=== PATIENT | male | born 1995 | race Caucasian/White ===

== ENCOUNTER 2017-07-20 02:57 | Inpatient (IN) | payer OTHER ==
[~2017-07-20] VITALS: Ht 177.8 cm; Wt 102.1 kg
[2017-07-20] VITALS (46 sets, daily range): BP systolic 72–182; BP diastolic 31–162
--- NOTE | ~2017-07-20 | HC ---
[facility] [place] [address] CONSULTATION Name: PAUL CARDONA KATHY Room #: 237-P ADM IN M.R.#: [id number] Admission: 07/20/17 Attend Phys: Anival Gordillo DO Discharge: Date of : 89 Report #: [id number] THIS REPORT FOR: //name// CC: FAM physician/PCP Anival Gordillo DATE OF SERVICE: 07/20/2017 ATTENDING PHYSICIAN: Dr. Gordillo. REASON FOR CONSULTATION: Sepsis. HISTORY OF PRESENT ILLNESS: The patient is a 22-year-old man, admitted through the Emergency Room with a history of being unwell for a few days, complaining mainly of not feeling well with chest discomfort, shortness of breath and chilling type sensation. The patient apparently uses intravenous drugs, injecting himself into the arms. The patient also relates he has a history of HIV infection and is receiving treatment with Genvoya (elvitegravir/cobicistat/emtricitabine/tenofovir alafenamide). The patient denies knowing his CD4 lymphocyte count or viral load. Apparently, he gave a previous history in the Emergency Room of having undetectable viral load. DRUG ALLERGIES: None listed. MEDICATIONS: Genvoya. SOCIAL HISTORY: Intravenous drug use. REVIEW OF SYSTEMS: Besides what has been stated above, I cannot extract much of any information from this patient. He is rather somnolent and either unable or unwilling to cooperate with the history and physical. CURRENT MEDICATIONS: The patient has been started on vancomycin 1000 mg single dose, Zosyn 3.375 grams IV single dose or 4.5 grams IV single dose. We have 2 entries for this drug. He also received some lorazepam for sedation. He is on famotidine, intravenous fluids and Levophed has been ordered. PHYSICAL EXAMINATION: GENERAL: Well-developed man. VITAL SIGNS: Temperature 96.9, pulse 112, respirations 40, BP 112/68 that drops down to 71/42. HEENMT: Head normocephalic, atraumatic. Pupils small. Conjunctivae normal. Mouth: No thrush or hairy leukoplakia. NECK: Supple. LUNGS: Clear to auscultation. HEART: S1, S2. No gallop or murmur. [address] [address] CONSULTATION Name: PAUL CARDONA KATHY Room #: [address] [place] [address] IN M.R.#: [id number] Admission: 07/20/17 Attend Phys: Anival Gordillo DO Discharge: Date of : 89 Report #: [id number] ABDOMEN: Soft, no masses or megaly. GENITALIA AND RECTAL: Deferred. He has a Lopez catheter in place and complaining of pain from the Lopez catheter. LYMPH NODE: Negative. NEUROLOGIC: Grossly within normal limits. LABORATORY DATA: Sodium 130, potassium 4.9, BUN 48, creatinine 6.2, glucose 110, calcium 7.1, albumin 2.6, LDH 397. CPK 958. Troponin 0.14. NT-proBNP 5277. Protime 12.4. WBC 21.8, hemoglobin 14.4, platelets 162,000. White blood cell count differential reveals 67% neutrophils, 17% bands. Procalcitonin greater than 200 ng/mL. Urinalysis revealed this to be hazy with 2+ blood, trace leukocyte esterase, some microscopic pyuria and hematuria as well as bacteriuria noted. ABGs, pH 7.33, pCO2 of 35, pO2 of 93, bicarbonate 18.3, lactate 2.79. This set of gases on room air. ASSESSMENT: 1. Severe sepsis. 2. Human immunodeficiency virus infection. SUGGESTIONS: Recommend richards culture, Zosyn loading dose followed by 2.25 grams IV every 8 hours. Vancomycin to be dosed by pharmacy. We will not give Genvoya yet. Suspect bloodstream infection from intravenous drug use. Dr. Gordillo, thank you for requesting my suggestions in the care of your patient. <ELECTRONICALLY SIGNED> By: Galileo Dc MD 07/21/17 0914 0915 191 Galileo Dc MD /nt
--- NOTE | ~2017-07-20 | H ---
[facility] [place] [address] HISTORY AND PHYSICAL Name: PAUL CARDONA Room #: 200-I ADM IN M.R.#: [id number] Admission: 07/20/17 Attend Phys: Catracho Acevedo MD Discharge: Date of : 89 Report #: [id number] THIS REPORT FOR: //name// CC: LOKI physician/PCP Anival Gordillo DATE OF SERVICE: 07/20/2017 REASON FOR PRESENTATION: Shortness of breath. HISTORY OF PRESENT ILLNESS: The patient is a 22-year-old with previous medical history of HIV diagnosed about a year ago as he stated. He is not really sure about the medication he is taking. He presented with sudden onset shortness of breath. This had started on Friday. It was associated with a feeling of the ribcage closing on him. He also had some chest tightness. No reported fever or chills. No upper respiratory tract infection symptoms. No previous similar episodes. He had been using methamphetamine in the last few days and had some unusual feeling including pins and needles in both feet. He also reported nausea. No vomiting. No urinary symptoms in the form of frequency, urgency, hesitancy. He is not aware of any previous kidney problems. Specifically, he was never told that he had some sort of chronic kidney disease. As I have stated, he has carried a diagnosis of HIV for the last 1 year. He is not really sure about his HIV counts. He is also not sure about the medication he is taking. 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 He does not have any personal history of hypertension or diabetes mellitus. No personal history of cystic kidney disease, nephrolithiasis, connective tissue diseases, glomerulonephritis. On presentation to the emergency room, he was found to have an elevated white blood cell count at 28.8. This was significant for bandemia. He had a sodium of 130, potassium of 5.9 on presentation and a creatinine of 6.5. Lactic acid was 1.9. He did have some other issues with an elevated CPK and LDH. Procalcitonin was markedly elevated. Troponin was initially 0.14. PAST MEDICAL HISTORY: HIV. PAST SURGICAL HISTORY: None per the patient. FAMILY HISTORY: He has a mom who carries a diagnosis of diabetes mellitus. MEDICATIONS: He does not recall any of his home medications including an HIV medication. ALLERGIES: None. SOCIAL HISTORY: Positive for methamphetamine. No alcohol, drug, or cigarettes. [facility] [address] [place] [address] HISTORY AND PHYSICAL Name: PAUL CARDONA Room #: 200-I [facility]#: [id number] Admission: 07/20/17 Attend Phys: Catracho Acevedo MD Discharge: Date of : 94 Report #: [id number] REVIEW OF SYSTEMS: GENERAL: No fever or chills, but significant for weakness. CARDIOVASCULAR: As per the history of present illness. PULMONARY: As per the history of present illness. GASTROINTESTINAL: Significant for nausea. GENITOURINARY: No frequency, no urgency. NEUROLOGIC: As per the history of present illness. PHYSICAL EXAMINATION: GENERAL: Alert, lethargic. VITAL SIGNS: Temperature 36.4, blood pressure 100/60. On presentation, his blood pressure was 78/42. HEAD AND NECK: No jugular venous distention, no bruit, no thyromegaly. CHEST: Clear to auscultation bilaterally. CARDIOVASCULAR: Regular with no rub. ABDOMEN: Soft, nontender with no hepatosplenomegaly. LOWER EXTREMITIES: No edema with intact peripheral pulses. LABORATORY DATA: Reviewed. White blood cell count 28.8. Sodium 130, potassium down to 4.9. Elevated LDH and CPK were noted. ASSESSMENT, IMPRESSION AND PLAN: 1. Acute kidney injury. 2. Methamphetamine abuse. 3. Hypotension. 4. Elevated white blood cell count. 5. Elevated procalcitonin. 6. Severe sepsis as evident by an elevated white blood cell count, hypertension, elevated procalcitonin. 7. Initiate septic workup. 8. Appropriate antibiotics. 9. Treat for his acute kidney injury after sending the appropriate investigations including ultrasounds and the urine electrolytes. 10. Potassium has already corrected with the usual treatment for his hyperkalemia. 11. Obtain cosyntropin stim test. 10. ID consultation. 11. We will continue to follow along. <ELECTRONICALLY SIGNED> By: Catracho Acevedo MD 07/23/17 1926 [id number] [id number] Catracho Acevedo MD /nt
--- NOTE | ~2017-07-20 | HC ---
[facility] [place] [address] CONSULTATION Name: PAUL CARDONA Room #: 200-I [facility] IN M.R.#: [id number] Admission: 07/20/17 Attend Phys: Catracho Acevedo MD Discharge: 07/25/17 Date of : 89 Report #: [id number] THIS REPORT FOR: //name// CC: LOKI physician/PCP Anival Gordillo DATE OF SERVICE: 07/21/2017 REASON FOR CONSULTATION: Acute kidney injury. HISTORY OF PRESENT ILLNESS: This 22-year-old young man with known HIV on treatment has been injecting methamphetamine, presented with acute kidney injury and septic syndrome stabilized initially with pressors and IV fluids, now just IV fluids and had acute kidney injury with no prior history of renal disease. Creatinine 6.5 and potassium 5.9. PAST MEDICAL HISTORY: Mostly remarkable just for the HIV on treatment apparently with Genvoya, which is a combination 3 drug including tenofovir. Denies previous history of hypertension or renal disease. FAMILY HISTORY: Positive for diabetes in his mother. SOCIAL HISTORY: Remarkable for the IV drug abuse. REVIEW OF SYSTEMS: GENERAL: He is seen in the ICU and is feeling reasonably well. EYES: No problem with his vision. ENT: Hearing okay, swallows okay. No mouth ulcers. ENDOCRINE: No diabetes or thyroid disease. RESPIRATORY: Occasionally a bit short winded. CARDIAC: No chest pain, angina, history of palpitations or myocardial disease. GASTROINTESTINAL: He has had some nausea. GENITOURINARY: No urinary symptoms. NEUROLOGIC: Including some neuropathy symptoms in his feet. PHYSICAL EXAMINATION: GENERAL: This is a well-appearing gentleman in no distress at the current time. SKIN: Unremarkable. SKELETAL: Well developed, well nourished. HEENT: Extraocular movements are full. No scleral icterus. Hearing and vision are intact. Mucous membranes are moist. Tongue and buccal mucosa are benign. NECK: Supple, no carotid bruits, JVD or lymphadenopathy. CHEST: Clear to auscultation. HEART: Regular. ABDOMEN: Soft and nontender without bruits, masses or organomegaly. EXTREMITIES: No peripheral edema. [facility] [address] [place] [address] CONSULTATION Name: PAUL CARDONA KATHY Room #: 200-I [facility]#: [id number] Admission: 07/20/17 Attend Phys: Catracho Acevedo MD Discharge: 07/25/17 Date of : 89 Report #: [id number] NEUROLOGIC: Grossly intact. LABORATORY DATA: Hemoglobin 12.4, white count 20,200 and platelets 116. Sodium 136, potassium 4.5, chloride 104, bicarbonate 21, creatinine 5.4 down from 6.5, BUN 52 up from 47. He also has transaminase elevations with AST of 276 and ALT at 693. ASSESSMENT AND PLAN: 1. Acute kidney injury. Acute kidney injury in the setting of sepsis-like syndrome and heavy methamphetamine use. He also has HIV. He is being treated appropriately with antibiotics and fluids in the ICU. He was on pressors, but he is off of those and doing better now. Urine output is up and creatinine is falling. He did have some proteinuria. Whether there is some chronic HIV nephropathy or not remains to be seen and also had casts suggesting of ATN. Continue with supportive therapy. Hopefully, he will get a complete recovery. 2. HIV infection, on appropriate treatment. 3. Methamphetamine usage. <ELECTRONICALLY SIGNED> By: Isak Jefferson MD 07/28/17 1053 0744 1002 Isak Jefferson MD /nt
--- NOTE | ~2017-07-20 | EKG ---
[address] [address] ELECTROCARDIOGRAM REPORT Name: PAUL CARDONA Room #: 237-P ADM IN M.R.#: [id number] Admission: 07/20/17 Attend Phys: Anival Gordillo DO Discharge: Date of : 89 Report #: [id number] THIS REPORT FOR: //name// [facility] ED Test Date: 2017-07-20 Test Time: 03:09:19 Pat Name: PAUL CARDONA Department: Room: 237 P Gender: M Vest Baster: BLAKE : 1995 Requested By: Karla Williamson Order Number: [id number] MD: Moshe Dc Measurements Intervals [place] Rate: 111 P: 38 NH: 135 QRS: 38 QRSD: 109 T: 57 QT: 298 QTc: 405 Interpretive Statements Sinus tachycardia Abnormal Q suggests anterior infarct Anteroseptal infarct, acute (LAD) No previous ECG available for comparison Electronically Signed On 07-20-2017 19:53:15 CDT by Moshe Dc [email or web address] <ELECTRONICALLY SIGNED> By: Moshe Dc MD 07/20/171952 8 8 Moshe Dc MD /LENNIE
--- NOTE | ~2017-07-20 | 2DMMODE ---
[facility] [address] [place] [address] 2 D/M-MODE ECHOCARDIOGRAM Name: PAUL CARDONA KATHY Room #: 237-P ADM IN M.R.#: [id number] Admission: 07/20/17 Attend Phys: Anival Gordillo, Discharge: Date of : 89 Date of Service: 07/21/17 0940 Report #: [id number] THIS REPORT FOR: //name// APPROVED REPORT Study performed: 07/21/2017 08:37:57 EXAM: Comprehensive 2D, Doppler, and color-flow Echocardiogram Patient Location: ICU Room #: [facility] Status: routine BSA: 2.21 HR: 106 bpm BP: 104/64 mmHg Other Information Study Quality: Good Indications Dyspnea Hypertension/HDD IV drug abuse, Sepsis 2D Dimensions RVDd: 42.48 mm LVEF(%): 56.76 (>50%) IVSd: 11.11 (7-11mm) LVOT Diam: 23.31 (18-24mm) LVDd: 41.43 mm PWd: 9.43 (7-11mm) Ascending Ao: 29.85 (22-36mm) LVDs: 29.25 (25-40mm) Aortic Root: 25.32 mm IVC: 13.00 mm Cox's LVEF: 56.76 % Volumes Left Atrial Volume (Systole) Single Plane 4CH: 52.94 mL Single Plane 2CH: 40.79 mL LA ESV Index: 23.00 mL/m2 Aortic Valve AoV Peak Prieto.: 1.59 m/s AO Peak Gr.: 10.07 mmHg LVOT Max P.10 mmHg LVOT Max V: 1.01 m/s CHARLA Vmax: 2.72 cm2 Mitral Valve E/A Ratio: 1.4 [facility] [place] [place] [address] 2 D/M-MODE ECHOCARDIOGRAM Name: [facility]END[facility]UL [facility] Room #: 237-P [facility] IN M.R.#: [id number] Admission: 07/20/17 Attend Phys: Anival Gordillo, Discharge: Date of : 89 Date of Service: 07/21/17 0940 Report #: [id number] MV Decel. Time: 81.72 ms MV E Max Prieto.: 0.92 m/s MV A Prieto.: 0.66 m/s MV PHT: 23.70 ms IVRT: 65.74 ms Pulmonary Valve PV Peak Prieto.: 1.06 m/s PV Peak Gr.: 4.47 mmHg AZ End Vmax: 1.20 m/s Pulmonary Vein P Vein S: 0.47 m/s P Vein A: 0.37 m/s P Vein D: 0.31 m/s P Vein A Dur.: 72.7 msec P Vein S/D Ratio: 1.52 Tricuspid Valve TR Peak Prieto.: 2.07 m/s TR Peak Gr.: 17.20 mmHg PA Pressure: 22.00 mmHg Left Ventricle The left ventricle is normal size. There is normal LV segmental wall motion. There is normal left ventricular wall thickness. The left ventricular systolic function is normal. The left ventricular ejection fraction is within the normal range. LVEF is 50-55%. The left ventricular diastolic function is normal. Right Ventricle Right ventricle is at the upper limits of normal. The right ventricular systolic function is normal. Atria The left atrium size is normal. Right atrium is mildly dilated. Aortic Valve The aortic valve is normal in structure. No aortic regurgitation is present. There is no aortic valvular stenosis. Mitral Valve The mitral valve is normal in structure. Trace mitral regurgitation. No evidence of mitral valve stenosis. Tricuspid Valve The tricuspid valve is normal in structure. There is trace tricuspid regurgitation.Estimated PAP 22 mmHg. [place] [address] 2 D/M-MODE ECHOCARDIOGRAM Name: PAUL CARDONA KATHY Room #: [facility] IN [facility]#: [id number] Admission: 07/20/17 Attend Phys: Anival Gordillo, Discharge: Date of : 89 Date of Service: 07/21/17 0940 Report #: [id number] hypertension. Pulmonic Valve The pulmonary valve is normal in structure. Trace pulmonic regurgitation. Great Vessels The aortic root is normal in size. IVC is normal in size and collapses >50% with inspiration. Pericardium There is no pericardial effusion. <Conclusion> 1. Normal echocardiogram with Doppler. EF 50-55% 2. Pulmonary artery pressure of 22mmHg 3. No pericardial effusion <ELECTRONICALLY SIGNED> By: Mat Hernandez MD, FACC 07/21/17939 9 9 Mat Hernandez MD, FACC /INF
[2017-07-20] MEDS ORDERED: NOHOMEMEDICATIONS (03:05)
[2017-07-20 03:58] LABS: CALCIUM 8.8 mg/dL (8.5-10.1); CREATININE 6.5 mg/dL (0.7-1.3); POTASSIUM 5.9 mmol/L (3.5-5.1)
[2017-07-20 04:06] LABS: PLATELET COUNT 162 thou/uL (150-400); WBC 21.8 thou/uL (4.0-11.0)
[2017-07-20 04:07] LABS: TROPONIN-I 0.14 ng/mL (<0.06)
[2017-07-20 04:08] LABS: HEMATOCRIT 42.5 % (42.0-52.0); HEMOGLOBIN 14.4 gm/dL (14.0-18.0); MCHC 33.9 g/dL (28.0-37.0); MCV 91.4 fL (80.0-100.0); RBC 4.65 mil/uL (4.50-6.00); RDW 13.8 % (10.5-14.5)
[2017-07-20 04:38] LABS: ABSOLUTE NEUTROPHILS 18.3 thou/uL (1.4-8.2); METAMYELOCYTES 7 %
[2017-07-20 04:56] LABS: INR 1.2; PROTIME 12.4 Seconds (9.3-11.4)
[2017-07-20 05:37] LABS: URINE BILIRUBIN NEGATIVE (Negative); URINE BLOOD 2+ (Negative); URINE CLARITY CLOUDY; URINE GLUCOSE-RANDOM* NEGATIVE (Negative); URINE KETONES NEGATIVE (Negative); URINE LEUKOCYTES-REFLEX NEGATIVE (Negative); URINE NITRITE-REFLEX NEGATIVE (Negative); URINE PROTEIN (DIPSTICK) 1+ (Negative); URINE SPECIFIC GRAVITY 1.025 (1.005-1.035)
[2017-07-20 05:38] LABS: URINE COLOR DARK YELLOW
[2017-07-20 05:54] LABS: AMORPHOUS URATES Many /LPF (None Seen); SQUAMOUS 4-10 Moderate /LPF (0-3)
[2017-07-20 05:55] LABS: BACTERIA-REFLEX 1-9 Few /HPF (None Seen); COARSE GRANULAR CASTS 0-3 Few /LPF (None Seen); FINE GRANULAR CASTS 0-3 Few /LPF (None Seen); URINE RBC 3-10 Few /HPF (0-2); URINE WBC-REFLEX 6-15 Few /HPF (0-5)
[2017-07-20 07:52] LABS: BE(vivo) -6.8 mmol/L (-2 to +3); HCO3 18.3 mmol/L (22.0-26.0); PCO2 35.5 mmHg (35.0-45.0); PO2 93.5 mmHg (80.0-100.0); pH 7.331 (7.360-7.450); sO2 96.7 % (92.0-98.0)
[2017-07-20 08:05] LABS: CALCIUM 7.1 mg/dL (8.5-10.1); CREATININE 6.2 mg/dL (0.7-1.3); POTASSIUM 4.9 mmol/L (3.5-5.1)
[2017-07-20 08:10] LABS: ALBUMIN 2.6 g/dL (3.4-5.0); PHOSPHORUS 3.1 mg/dL (2.5-4.9)
[2017-07-20 08:44] LABS: URINE CREATININE-RANDOM* 83.7 mg/dL; URINE PROTEIN-RANDOM* 66.7 mg/dL (<11.9)
[2017-07-20 08:48] LABS: URINE BILIRUBIN NEGATIVE (Negative); URINE BLOOD 2+ (Negative); URINE COLOR YELLOW; URINE GLUCOSE-RANDOM* NEGATIVE (Negative); URINE KETONES NEGATIVE (Negative); URINE LEUKOCYTES TRACE (Negative); URINE NITRITE NEGATIVE (Negative); URINE PROTEIN (DIPSTICK) 1+ (Negative); URINE UROBILINOGEN 0.2 E.U./dl (0.2-1.0)
[2017-07-20 08:51] LABS: URINE CLARITY HAZY
[2017-07-20 09:09] LABS: COARSE GRANULAR CASTS 0-3 Few /LPF (None Seen); CRYSTALS None Seen /LPF (None Seen); FINE GRANULAR CASTS 0-3 Few /LPF (None Seen); SQUAMOUS 0-3 Few /LPF (0-3); URINE RBC 3-10 Few /HPF (0-2); URINE WBC 6-15 Few /HPF (0-5)
[2017-07-20 09:11] LABS: BACTERIA >30 Many /HPF (None Seen)
[2017-07-20] MEDS ORDERED: GENVOYA TABLET1 EACH PO (11:22)
[2017-07-20 17:41] LABS: AMP/METHAMP POSITIVE (Negative); BARBITURATES Negative (Negative); BENZODIAZEPINES Negative (Negative); COCAINE Negative (Negative); METHADONE Negative (Negative); OPIATES Negative (Negative); PCP Negative (Negative)
[2017-07-21] VITALS (19 sets, daily range): BP systolic 92–128; BP diastolic 49–102
[2017-07-21 00:08] LABS: CORTISOL 30 MIN 33.2 ug/dL (Not Estab.); CORTISOL 60 MIN 26.7 ug/dL (Not Estab.); CORTISOL BASELINE 17.4 ug/dL (())
[2017-07-21 06:08] LABS: HEMATOCRIT 36.8 % (42.0-52.0); MCH 30.7 pg (26.0-34.0); MCHC 33.7 g/dL (28.0-37.0); MCV 91.3 fL (80.0-100.0); RBC 4.03 mil/uL (4.50-6.00); RDW 13.5 % (10.5-14.5); WBC 20.2 thou/uL (4.0-11.0)
[2017-07-21 06:24] LABS: ALBUMIN 2.5 g/dL (3.4-5.0); CALCIUM 7.2 mg/dL (8.5-10.1); CREATININE 5.4 mg/dL (0.7-1.3); POTASSIUM 4.5 mmol/L (3.5-5.1); TOTAL BILIRUBIN 1.4 mg/dL (<0.1-1.0); TOTAL PROTEIN 5.8 g/dL (6.4-8.2)
[2017-07-21 06:29] LABS: HEMOGLOBIN 12.4 gm/dL (14.0-18.0)
[2017-07-21 08:44] LABS: TROPONIN-I 0.38 ng/mL (<0.06)
[2017-07-21 15:06] LABS: HAV IgM AB (ANTI-HAV IgM) Negative (Negative); HEPATITIS B SURFACE AG Negative (Negative); HEPATITIS C VIRUS AB <0.1 (0.0-0.9)
[2017-07-22 03:21] VITALS: BP 110/54
[2017-07-22 05:03] LABS: HEMATOCRIT 38.9 % (42.0-52.0); MCH 30.6 pg (26.0-34.0); MCHC 33.4 g/dL (28.0-37.0); MCV 91.6 fL (80.0-100.0); PLATELET COUNT 136 thou/uL (150-400); RBC 4.24 mil/uL (4.50-6.00); RDW 13.9 % (10.5-14.5); WBC 30.5 thou/uL (4.0-11.0)
[2017-07-22 05:43] LABS: ALBUMIN 2.2 g/dL (3.4-5.0); CALCIUM 8.2 mg/dL (8.5-10.1); POTASSIUM 4.5 mmol/L (3.5-5.1); TOTAL BILIRUBIN 0.5 mg/dL (<0.1-1.0)
[2017-07-22 05:47] LABS: CREATININE 2.9 mg/dL (0.7-1.3)
[2017-07-22 07:05] LABS: ABSOLUTE NEUTROPHILS 28.1 thou/uL (1.4-8.2)
[2017-07-22 08:05] VITALS: BP 110/62
[2017-07-22 12:01] VITALS: BP 133/66
[2017-07-22 15:07] LABS: CD3 % 56.6 % (57.5-86.2); CD4 % 24.9 % (30.8-58.5); CD4:CD8 0.82 (0.92-3.72); CD8 % 30.2 % (12.0-35.5)
[2017-07-22 15:15] VITALS: BP 124/81
[2017-07-22 20:30] VITALS: BP 124/77
[2017-07-23 05:05] VITALS: BP 125/81
[2017-07-23 05:49] LABS: HEMATOCRIT 38.8 % (42.0-52.0); HEMOGLOBIN 12.9 gm/dL (14.0-18.0); MCH 30.9 pg (26.0-34.0); MCHC 33.4 g/dL (28.0-37.0); MCV 92.5 fL (80.0-100.0); RBC 4.19 mil/uL (4.50-6.00); WBC 23.7 thou/uL (4.0-11.0)
[2017-07-23 05:59] LABS: ALBUMIN 2.3 g/dL (3.4-5.0); CALCIUM 8.7 mg/dL (8.5-10.1); CREATININE 2.1 mg/dL (0.7-1.3); PHOSPHORUS 3.1 mg/dL (2.5-4.9); POTASSIUM 4.3 mmol/L (3.5-5.1)
[2017-07-23 07:30] VITALS: BP 106/59
[2017-07-23 11:30] VITALS: BP 117/68
[2017-07-23 15:30] VITALS: BP 135/80
[2017-07-23 20:06] VITALS: BP 148/66
[2017-07-24 04:33] VITALS: BP 134/73
[2017-07-24 08:45] VITALS: BP 146/71
[2017-07-24 16:13] VITALS: BP 146/71
[2017-07-24 16:28] VITALS: BP 147/79
[2017-07-24 19:06] VITALS: BP 128/83
[2017-07-25 03:00] VITALS: BP 115/56
[2017-07-25 06:10] LABS: HEMATOCRIT 40.5 % (42.0-52.0); MCH 31.2 pg (26.0-34.0); MCHC 34.6 g/dL (28.0-37.0); MCV 90.2 fL (80.0-100.0); PLATELET COUNT 160 thou/uL (150-400); RBC 4.48 mil/uL (4.50-6.00); RDW 13.7 % (10.5-14.5); WBC 10.9 thou/uL (4.0-11.0)
[2017-07-25 06:30] LABS: ALBUMIN 2.7 g/dL (3.4-5.0); CALCIUM 8.7 mg/dL (8.5-10.1); CREATININE 1.6 mg/dL (0.7-1.3); POTASSIUM 4.1 mmol/L (3.5-5.1); TOTAL BILIRUBIN 0.4 mg/dL (<0.1-1.0); TOTAL PROTEIN 6.9 g/dL (6.4-8.2)
[2017-07-25 06:51] LABS: ATYPICAL LYMPHS 2 %; LARGE PLATELETS FEW; METAMYELOCYTES 1 %
[2017-07-25 07:20] VITALS: BP 125/74
[2017-07-25 10:45] VITALS: BP 146/71
[2017-07-25 10:51] VITALS: BP 146/71
[2017-07-25 14:13] VITALS: BP 146/71
== END 2017-07-25 16:07 | disposition home or self-care (01) | DRG 871 ==
LOC: ER → 2N 05:33 → ICU 05:33 → EROBS 05:33 → ICU 07:05 → 2N 07-21 17:49 → ENTRNSPT 07-24 18:08 → 2N 07-25 16:07
PROVIDERS: Emergency Medicine; Family Medicine; Hospitalist; Specialist
PROC: 05HM33Z Insertion of Infusion Device into Right Internal Jugular Vein, Percutaneous Approach (ICD-10-PCS; principal; 2017-07-20)
PROC: B543ZZA Ultrasonography of Right Jugular Veins, Guidance (ICD-10-PCS; principal; 2017-07-20)
DX: A41.9 Sepsis, unspecified organism (principal); N17.0 Acute kidney failure with tubular necrosis; R65.21 Severe sepsis with septic shock; K72.00 Acute and subacute hepatic failure without coma; E87.1 Hypo-osmolality and hyponatremia; E87.5 Hyperkalemia; Z83.3 Family history of diabetes mellitus; F15.10 Other stimulant abuse, uncomplicated; D69.6 Thrombocytopenia, unspecified; Z21 Asymptomatic human immunodeficiency virus [HIV] infection status
CPT/HCPCS: 10078; 10081

== ENCOUNTER 2019-12-13 01:23 | Emergency (ER) | payer OTHER ==
[~2019-12-13] VITALS: Ht 177.8 cm; Wt 111.1 kg
[~2019-12-13 01:23] MED LIST: GENVOYA TABLET1 EACH PO; NOHOMEMEDICATIONS
[2019-12-13] MEDS ORDERED: BIKTARVY 50-201 EACH PO (01:32)
[2019-12-13 02:21] LABS: URINE BILIRUBIN NEGATIVE (Negative); URINE BLOOD 3+ (Negative); URINE CLARITY CLOUDY; URINE COLOR YELLOW; URINE GLUCOSE-RANDOM* NEGATIVE (Negative); URINE KETONES TRACE (Negative); URINE NITRITE-REFLEX NEGATIVE (Negative); URINE PROTEIN (DIPSTICK) 2+ (Negative); URINE SPECIFIC GRAVITY >= 1.030 (1.005-1.035)
[2019-12-13 02:26] LABS: URINE LEUKOCYTES-REFLEX 1+ (Negative)
[2019-12-13 02:39] LABS: CASTS None Seen /LPF (None Seen); CRYSTALS None Seen /LPF (None Seen); MUCUS 0-3 Light strn/LPF (None Seen); SQUAMOUS 0-3 Few /LPF (0-3); URINE WBC-REFLEX >25 Many /HPF (0-5); WBC CLUMPS Moderate (None Seen)
[2019-12-13] MEDS ORDERED: KEFLEX500 M1 PO (02:51)
[2019-12-13 03:03] VITALS: BP 150/90
== END 2019-12-13 03:04 | disposition home or self-care (01) ==
LOC: ER 01:23
PROVIDERS: Emergency Medicine
DX: N39.0 Urinary tract infection, site not specified (principal); N48.89 Other specified disorders of penis; B20 Human immunodeficiency virus [HIV] disease; Z79.899 Other long term (current) drug therapy